=== PATIENT | female | born 1975 | race Caucasian/White ===

== ENCOUNTER 2021-03-15 16:56 | Emergency (ER) | payer OTHER ==
[~2021-03-15] VITALS: Ht 160 cm; Wt 59.7 kg
--- NOTE | 2021-03-15 17:18 | NUR ---
PT BROUGHT BACK WITH CHIEF COMPLAINT OF SOB, FOUL SMELLING URINE (RECENT UTI), MUSCLE SPASMS. PT CONCERNED ABOUT COVID. HX COVID IN 08/2019
[2021-03-15 18:15] LABS: MEAN CORPUSCULAR HEMOGLOBIN 35.6 pg (27.0-34.8); MEAN CORPUSCULAR HGB CONC 34.4 g/dL (32.4-35.8); MEAN PLATELET VOLUME 7.4 fL (7.4-10.4); PLATELET COUNT 329 x10^3/uL (130-400); RED BLOOD COUNT 3.35 x10^6/uL (3.82-5.3); RED CELL DISTRIBUTION WIDTH 13.3 % (9.6-15.2)
[2021-03-15 18:16] LABS: MICROSCOPIC INDICATED
[2021-03-15 18:24] LABS: ALBUMIN 2.3 g/dL (3.4-5.0); ANION GAP 5 mmol/L (5-15); CALCIUM 9.1 mg/dL (8.5-10.1); CHLORIDE 96 mmol/L (98-107); CREATININE 0.77 mg/dL (0.55-1.02)
--- NOTE | 2021-03-15 18:32 | NUR ---
pt refused ekg, ermd aware
[2021-03-15 18:45] LABS: <PLATELET ESTIMATE> ADEQUATE; <PLT MORPHOLOGY> NORMAL PLT MORPH; LYMPH#(MANUAL) 0.87 x10^3/uL (1-3.4); LYMPHS% (MANUAL) 6 % (22-44); METAMYELOCYTES# (MANUAL) 0.15 x10^3/uL (0-0); METAMYELOCYTES% (MANUAL) 1 % (0-1); MONOS#(MANUAL) 1.02 x10^3/uL (0.3-2.7); MONOS% (MANUAL) 7 % (2-9); SEG#(MANUAL) 12.47 x10^3/uL (1.8-6.8); SEGS% (MANUAL) 86 % (42-75)
[2021-03-15 18:46] LABS: <RBC MORPHOLOGY> NORMAL
[2021-03-15] MEDS ORDERED: POTASSIUM CHLORIDE 20 MEQ TAB.ER.PRT ONE (19:12)
[2021-03-15] MEDS ORDERED: CEFDINIR 300 MG CAPSULE ONE (19:12)
[2021-03-15 19:14] VITALS: BP 145/91
--- NOTE | 2021-03-15 19:22 | NUR ---
ice pack provided
[2021-03-15] MEDS ORDERED: POTASSIUM CHLORIDE 20 MEQ TAB.ER.PRT PO ONE (19:30)
[2021-03-15] MEDS ORDERED: CEFDINIR 300 MG CAPSULE PO ONE (20:00)
--- NOTE | 2021-03-15 20:06 | NUR ---
dc instructions reviewed
== END 2021-03-15 20:25 | disposition home or self-care (01) ==
LOC: ED 18:00
DX: N30.00 Acute cystitis without hematuria (principal); Z20.822 Contact with and (suspected) exposure to COVID-19; E87.6 Hypokalemia; R51.9 Headache, unspecified; R07.9 Chest pain, unspecified
CPT/HCPCS: 36415; 71045; 80048; 81001; 82040; 85025; 87077; 87086; 99284; U0003; U0005; 87186